=== PATIENT | female | born 1950 | race Hispanic/Latino ===

== ENCOUNTER 2017-05-19 12:43 | Outpatient (CLI) | payer MEDICARE ==
--- NOTE | 2017-05-19 15:55 | RAD ---
LUMBAR SPINE TWO VIEWS: History: Lumbar radiculopathy. FINDINGS: Lumbar vertebrae maintain normal height and alignment. There is loss of disc space at L5-S1. Mild deg enerative osteophytes are seen. Mild facet hypertrophy at L4-5 and L5-S1. No evidence of spondylolist hesis or spondylolysis. IMPRESSION: Loss of disc space at L5-S1 with mild to moderate degenerative changes noted in the lumbar spine. POS: [facility]
== END 2017-05-19 12:44 | disposition home or self-care (01) ==
LOC: TBSIIMAG 12:43
PROVIDERS: ATTEND Surgery
DX: M47.26 Other spondylosis with radiculopathy, lumbar region (principal)
CPT/HCPCS: 72100

== ENCOUNTER 2019-02-15 11:15 | Outpatient (CLI) | payer MEDICARE ==
--- NOTE | 2019-02-15 11:34 | RAD ---
EXAM: 5 views of the cervical spine HISTORY: Right arm weakness and paresthesias COMPARISON: None FINDINGS: AP, lateral, flexion/extension, and open mouth odontoid views of the cervical spine shows n ormal height and alignment of the vertebral bodies without fracture or subluxation. Moderate intervertebral disc space narrowing and osteophyte formation is seen throughout the cervical spine. N o prevertebral soft tissue swelling is seen. Alignment is unchanged with flexion and extension. IMPRESSION: Moderate degenerative changes of the cervical spine with unchanged alignment with bending
== END 2019-02-15 11:16 | disposition home or self-care (01) ==
LOC: TBSIIMAG 11:15
PROVIDERS: ATTEND Surgery
DX: R20.2 Paresthesia of skin (principal); M47.812 Spondylosis without myelopathy or radiculopathy, cervical region
CPT/HCPCS: 72050

== ENCOUNTER 2019-11-18 08:48 | Outpatient (CLI) | payer MEDICARE ==
[2019-11-18 11:41] LABS: #Lymphocytes 1.4 thou/uL (1.20-3.40); #Monocytes 0.5 thou/uL (0.11-0.59); #Neutrophils 3.1 thou/uL (1.40-6.50); %Basophils 0.4 % (0.0-1.0); %Eosinophils 0.8 % (0.0-10.0); %Lymphocytes 27.5 % (21.0-51.0); %Monocytes 10.1 % (0.0-10.0); %Neutrophils 61.2 % (42.0-75.0); Hemoglobin 12.7 g/dL (12.0-16.0); Mean Corpuscular HGB CONC 33.1 g/dL (32.0-36.0); Mean Corpuscular Hemoglobin 31.7 pg (27.0-31.0); Mean Corpuscular Volume 95.6 fL (78.0-98.0); Mean Platelet Volume 10.6 fL (7.4-10.4); Platelet Count 177 thou/uL (130-400); RBC Distribution Width 12.1 % (11.5-14.5); Red Blood Cell (RBC) Count 4.01 mill/uL (4.20-5.40)
[2019-11-18 12:04] LABS: Anion Gap 11 mmol/L (10-20); BUN (Urea Nitrogen) 9 mg/dL (9.8-20.1); Calc. Creatinine Clearance 0 mL/min (70-130); Calcium 8.9 mg/dL (7.8-10.44); Carbon Dioxide 28 mmol/L (23-31); Chloride 104 mmol/L (98-107); Estimated GFR-MDRD 55; Glucose 99 mg/dL (80-115); Potassium 3.9 mmol/L (3.5-5.1); Sodium 139 mmol/L (136-145)
== END 2019-11-18 08:49 | disposition home or self-care (01) ==
LOC: SCSLAB 08:48
PROVIDERS: ATTEND Orthopaedic Surgery
DX: Z01.818 Encounter for other preprocedural examination (principal); M21.6X2 Other acquired deformities of left foot; M76.62 Achilles tendinitis, left leg
CPT/HCPCS: 80048; 85025